=== PATIENT | female | born 1945 | race Caucasian/White ===

== ENCOUNTER 2022-11-29 15:30 | Outpatient (REF) | payer MEDICARE, SELFPAY | END 2022-11-29 15:31 | disposition home or self-care (01) | LOC: LAB 15:30 | PROVIDERS: Visit Provider Orthopaedic Surgery Sports Medicine | DX: Z01.818 Encounter for other preprocedural examination (principal); Z20.822 Contact with and (suspected) exposure to COVID-19 | CPT/HCPCS: 36415; 86850; 86900; 86901 ==

== ENCOUNTER 2022-12-01 10:50 | Day surgery (SDC) | payer MEDICARE, SELFPAY ==
[2022-12-01] VITALS (20 sets, daily range): BP systolic 92–150; BP diastolic 52–97; PULSE 65–93; RESP 13–20; TEMP 35.3–36.8; O2SAT 92–100; BMI 36.8
--- NOTE | 2022-12-01 11:13 | CRLHL7_ITS ---
For Patients: As a result of the Cures Act, medical imaging exams and procedure reports are released immediately into your electronic medical record. You may view this report before your referring provider. If you have questions, please contact your health care provider. Indication: Postop Technique: AP hip centered pelvis and lateral view right hip Findings/Impression: Hardware from a right total hip arthroplasty is in satisfactory position. Bone alignment is normal. No sign of acute fracture. Postop changes are within normal limits. Dictated by Edgar Salinas MD @ 12/01/2022 3:41:59 PM (Electronically Signed)
[2022-12-01] MEDS: LACTATED RINGERS 1000 ML 1,000 ML 100 ML IV ×2 (11:49→13:20)
[2022-12-01] MEDS: OXYCODONE (CR) 10 MG TAB.ER.12H PO (11:50)
[2022-12-01] MEDS: ACETAMINOPHEN 500 MG TABLET 1000 MG PO ×2 (11:50→18:08)
[2022-12-01] MEDS: CELECOXIB 200 MG CAPSULE PO ×2 (11:50→22:20)
[2022-12-01] MEDS: fentaNYL 100 MCG/2 ML inj IVP (12:24)
[2022-12-01] MEDS: MIDAZOLAM HCL 1 MG/ML inj IVP (12:24)
--- NOTE | 2022-12-01 12:29 | SUR.PREOP ---
TIME?OUT:?1220 PT/RN/MDA?VERIFICATION?OF?SURGICAL?SITE,?PROCEDURE,?AND?CONSENT OBTAINED?PRIOR?TO?INVASIVE?PROCEDURE. all in agreement
--- NOTE | 2022-12-01 12:45 | CRLHL7_ITS ---
For Patients: As a result of the Cures Act, medical imaging exams and procedure reports are released immediately into your electronic medical record. You may view this report before your referring provider. If you have questions, please contact your health care provider. Indication: Hip replacement surgery Technique: AP hip fluoroscopic image. Fluoroscopy time 48.1 seconds. Findings/Impression: Hardware from a right total hip arthroplasty is in satisfactory position. Dictated by Edgar Salinas MD @ 12/01/2022 3:35:35 PM (Electronically Signed)
[2022-12-01] MEDS: TRANEXAMIC ACID 100 MG/ML INJ 1000 MG IV (12:50)
[2022-12-01] MEDS: CEFAZOLIN 2 GM in 0.9 % SODIUM CHLORIDE Mini-bag 100 ML IVPB ×2 (12:55→18:09)
--- NOTE | 2022-12-01 13:00 | P.NB_ITS ---
Nerve Block Nerve Block Time Seen by Provider: 12:25 Date Seen: 12/01/22 Type of block requested by surgeon for post-operative analgesia: LOLY/LFCN Side: right Time out performed: Yes Verification of patient name: Yes Verification of date of : Yes Site marking: site marked Name of person performing procedure: Oscar Continuous monitoring Was continuous monitoring of O2 sat, B/P, director of cardiac cath lab, recorded every 15 minutes?: Yes Procedure Checklist: sterile prep, needles and gloves Ultrasound guided. Images saved: Yes Medications given in 5ml increments after negative aspiration: Ropivicaine %: 0.5 mL: 30 Needle gauge: 20 Decadron (mg): 10 Precedex (mcg): 25 Patient tolerated procedure well: Yes Additional comments: Needle noted below psoas tendon needle noted adjacent to LFCN Block Charges Block Charge (with Pro Fee): Other Periph Nerve Block Use of Ultrasound Machine for Block: Yes- US Guidance/pain block
--- NOTE | 2022-12-01 13:32 | W.ANESCHARGE ---
Anesthesia Charges Start Date/Time Anesthesia Start Date: 12/01/22 Anesthesia Start Time: 12:30 Stop Date/Time Anesthesia Stop Date: 12/01/22 Anesthesia Stop Time: 15:10 Summary Emergency: No Extremes of Age: Over 71-CPT 78136
--- NOTE | 2022-12-01 14:11 | W.ANESCHARGE ---
Anesthesia Charges Start Date/Time Anesthesia Start Date: 12/01/22 Anesthesia Start Time: 12:30 Stop Date/Time Anesthesia Stop Date: 12/01/22 Anesthesia Stop Time: 15:10 Summary Emergency: No Extremes of Age: Over 71-CPT 38907
--- NOTE | 2022-12-01 14:23 | P.ORPRC_ITS ---
Procedure Note Date of procedure: 12/01/22 Procedure: PREOPERATIVE DIAGNOSIS: 1. Right hip osteoarthritis, severe, primary POSTOPERATIVE DIAGNOSIS: 1. Right hip osteoarthritis, severe, primary 2. Right acetabular 1.8 cm cyst within the superior acetabulum PROCEDURE: 1. Right total hip arthroplasty-anterior approach 2. Right acetabular this cyst excisional debridement of cystic tissue and bone grafting using autograft from the femoral head 3. [id number] - intraoperative fluoroscopy up to 1 hour. SURGEON: Massimo Tellez MD. CHROME PLATER: Tony Hodge PA-C; RICK Randall - Of note, a skilled office manager executive assistant was critical for this case to aid in patient positioning, tissue retraction, limb manipulation/positioning, and closure. ANESTHESIA: Spinal anesthetic EBL: 300 mL IMPLANTS: DePuy J&J uncemented total hip Hildreth cup size 52, hole eliminator, +0 neutral liner Actis stem, standard offset, size 9 +5 mm ceramic 32mm head COMPLICATIONS: None evident INDICATIONS: The patient is a pleasant 77-year-old female who has experienced severe right hip pain and difficulty bearing weight. Workup included x-rays which revealed severe osteoarthrosis in the hip. Given the deformity, the dysfunction, and the pain, as well as the failure of nonoperative management, recommendation was made for surgery. FINDINGS: Severe full-thickness chondral loss femoral head broadly as well as within the acetabulum. Large osteophytes around the perimeter of the femoral head/neck junction. Large 1.8 cm cystic structure within the superior acetabulum seen following reaming. There was bone in the deep surface making this within the sourcil region. DESCRIPTION OF PROCEDURE: Following a thorough discussion of risks, benefits, and alternatives consent was obtained and the right hip was marked. The patient was brought to the operating room and placed supine on the operating table. Induction of anesthesia was undertaken. 2 g IV Ancef and 1 g tranexamic acid was administered within 1 hr of incision preoperatively. Proper time-out was performed identifying proper patient, site, procedure. The operative extremity was prepped and draped in the appropriate sterile fashion using ChloraPrep after the patient was positioned on the [place] table with head in neutral alignment and all bony prominences well padded. C-arm fluoroscopic imaging was utilized to confirm proper pelvis rotation and position, and to get true AP films of both the contralateral left, and the affected right hip. This is for comparison. A longitudinal incision was made starting approximately 1 cm distal to the ASIS, and 3-4 cm lateral. The incision was extended distally aiming toward the lateral border the patella. Sharp incision through skin and bovie cautery through the subcutaneous tissue allowed identification of the TFL fascia. This was sharply divided, and the fascia bluntly released from the muscle fibers as we dissected medial. Upon coming to the medial border, we were able to retract the TFL laterally, and penetrated the deeper fascia and identify the crossing circumflex vessels. These were ligated/cauterized. The rectus was elevated from the capsule, and retractors placed laterally and medially along the femoral neck to help with visualization of the capsule. We then performed an inverted T capsulotomy. The capsule was tagged for later repair. Retractors were placed inside the capsule. The femoral neck was visualized after releasing medially down to the lesser trochanter, along the saddle laterally, and up onto the acetabulum. The femoral neck cut was made in line with our preoperative templating. The head was removed in a single piece, and sized. We turned our attention to acetabular preparation. Initially, the labrum was resected from around the perimeter, the pulvinar was excised, allowing us to visualize the false wall. We started the reaming with a 43 mm reamer. This was medialized down to the true wall. We then enlarged our reamers sequentially up to one size less than the selected cup size. At this stage, the large cyst was seen within the superior acetabulum. We curetted out this cystic tissue down to bone. We utilized the femoral head after splitting this. The cancellous bone from the head was packed within the cyst and both with digital palpation as well as with a Joy elevator. The Reamer was then placed on reverse with excellent fill of the bone void. Following this, we trialed at the same size and found it to have an excellent fit. The selected cup was then opened, inserted, and impacted in line with the goal of 40? of abduction, and 20-25? of anteversion. This was confirmed on C-arm fluoroscopic imaging to be in the appropriate/goal position. Once the cup was placed we placed a hole eliminator and a liner consistent with preop planning. Attention was turned to the femoral preparation. The limb was extended, externally rotated, and adducted. The posteromedial capsule was released, as retractors were placed allowing excellent access to the proximal femur. Initially a weigh box tender was followed by canal finder followed by various broaches. We broached sequentially up to the size noted above, found it to have excellent rotational control, and trialing various heads and necks, revealed that appropriate neck offset, and the above noted head size provided the greatest stability, and adventist of length, and offset. C-arm fluoroscopic imaging confirmed position of the stem, as well as leg lengths, which were compared with the pre procedure all fluoroscopic images. Trial implants were removed, the real femoral stem inserted, as was the appropriate head. After reducing, the leg was placed through range of motion and stability was confirmed anterior, posterior, and lateral. A 3 min Betadine soak was then performed, and thorough irrigation with normal saline followed. Closure of the capsule was performed with #1 PDS. Bleeding was confirmed to be controlled at this stage, and the TFL fascia was closed with #0 strata fix. Subcutaneous, and subcuticular closure was performed with 2-0 Vicryl and 4-0 Monocryl, respectively. Dressings were applied, and the patient was awoken from anesthesia and transferred the PACU in stable condition. A skilled office manager executive assistant was critical for this case to aid in patient positioning, tissue retraction, acetabular and proximal femoral exposure, limb manipulation/positioning, dislocation/relocation, patient safety, and closure. PLAN: 1. Weight bear as tolerated operative extremity. 2. 23 hr perioperative antibiotics. 3. Ice. 4. PT/OT consults for ambulation assistance/mobility education. 5. Social work consult for discharge planning. 6. DVT prophylaxis with at SCDs, Olivier Escobar, and Xarelto x5 days followed by aspirin for a total of 1 month..
--- NOTE | 2022-12-01 14:59 | PM.IMCN1 ---
Date of Consult Patient: Surekha Patient Consult date: 12/01/22 Requesting Physician: Orthopedics Primary Care Provider: Not a Local Provider Consult Narrative Narrative: HOSPITALIST CONSULT Hospital Day # 1 Post Op Day # 0 PROCEDURE: 1. Right total hip arthroplasty-anterior approach 2. Right acetabular this cyst excisional debridement of cystic tissue and bone grafting using autograft from the femoral head The hospital medicine team was asked by Orthopedic team to manage the patient's hypertension, and morbid obesity There have been no perioperative concerns or questions. I updated the [facility] histories and Medications and Allergies in the Expanse tabs REVIEW OF SYSTEMS: 12-point ROS completed with patient and negative unless otherwise stated in HPI or below. PHYSICAL EXAM: CODE STATUS: FULL CODE CONSTITUTIONAL: Conversive, good historian. A/O. Knows setting and context. VITAL SIGNS: see record. HEENT: Normocephalic, atraumatic. PERRL, EOMI, conjunctivae pink, no scleral icterus. Ears and nose externally normal. Pharynx normal. NECK: No JVD. No carotid bruit, no thyromegaly, no adenopathy. CHEST: Clear to auscultation bilaterally HEART: No harsh murmurs. S1/S2. ABDOMEN: Flat, soft, nontender. Normal bowel sounds. Moderately obese. EXTREMITIES: trace edema MUSCULOSKELETAL: surgical dressing intact and no obvious bleeding / hematoma. NEURO: Cranial nerves intact. Normal affect. No gross deficits. Speech intelligible. dense spinal anesthesia appreciated. SKIN: No rashes, petechiae, concerning changes PSYCHIATRIC: Euthymic. INVESTIGATIONS: EMR Reviewed DISPOSITION: MedSurg Recovery; Discharge tomorrow DVT: Agree with ortho plan for DVT prevention (xarelto x 5D, aspirin bid x 25D) GI: PO intake PFSH PFS Medical History (Updated 12/01/22 @ 16:39 by Janette Iqbal MD) GERD (gastroesophageal reflux disease) Hearing loss Hyperlipemia Hyperlipidemia Hypertension Injury of left shoulder Obesity (BMI 30-39.9) PATIENCE (obstructive sleep apnea) PATIENCE (obstructive sleep apnea) Osteoarthritis of right knee Scoliosis Tremor Surgical History (Updated 12/01/22 @ 16:22 by Janette Iqbal MD) History of total right hip arthroplasty Hx of appendectomy Social History Smoking Status: Never smoker Do you use any of these nicotine containing products: None How often do you have a drink containing alcohol: 2-3 times a week Alcohol type: wine How many standard drinks containing alcohol do you have on a typical day: 1 or 2 How often do you have six or more drinks on one occasion: Never AUDIT-C Alcohol total score: 3 Non-prescribed substance use: denies use Caffeine: Yes (coffee 2 cups/day) Are you using contraception or practicing any form of control: No Meds Home Medications and Allergies Home Medications Medication Instructions Recorded Confirmed Type lisinopril 10 mg tablet 10 mg PO DAILY 08/24/22 12/01/22 History hydrochlorothiazide 25 mg tablet 25 mg PO DAILY 11/29/22 12/01/22 History lovastatin 40 mg tablet 40 mg PO HS 11/29/22 12/01/22 History multivitamin 1 tab PO DAILY 11/29/22 12/01/22 History potassium chloride 20 mEq 20 meq PO DAILY 11/29/22 12/01/22 History tablet,extended release(part/cryst) Allergies Allergy/AdvReac Type Severity Reaction Status Date / Time No Known Drug Allergies Allergy Verified 10/05/22 13:44 Exam Const: Vital Signs, click to edit/add: Vital Signs - 24 hr 12/01/22 11:39 12/01/22 12:24 Temperature 98.2 F Pulse Rate 69 84 Respiratory Rate 16 16 Blood Pressure 124/52 L 150/77 H Pulse Oximetry 96 99 Oxygen Delivery Me thod Room Air Nasal Cannula Oxygen Flow Rate 2 Assessment and Plan Assessment and plan (1) Osteoarthritis of right hip: Problem comment: Severe, anterior approach total hip arthroplasty 12/01/2022 Dr. Fernandes Status: Acute (2) History of total right hip arthroplasty: Problem comment: Dr. Tellez; 12/01/22. anterior approach. Status: Acute (3) Obesity (BMI 30-39.9): Problem comment: BMI 35.8 Status: Acute (4) Hypertension: Problem comment: Hydrochlorothiazide, lisinopril, potassiu -these will be on hold p.r.n. Status: Acute
--- NOTE | 2022-12-01 15:48 | SUR.PHASEI ---
patient met discharge criteria per anesthesia
[2022-12-01] MEDS: OXYCODONE 5 MG TABLET PO (19:24)
--- NOTE | 2022-12-01 20:19 | PC.NURSE ---
Pt arrived in hospital bed to room 282 @ 1548 pm s/p RTHAA with Dr. Tellez, settled per Daly Medina RN. Please see initial assessment from PACU and frequent post op VS. Pt's pain 0 out of 10 d/to surgical block. Spouse Mariel supportive at bedside. Maintenance IVF @ 100 cc/hr. Pt received IV ATB and scheduled tylenol 1000 mg. Beverley calm and cooperative with nsg interventions and post op teaching. Tolerating CL diet. Pt has not yet voided since arrival to floor. Report to Bubba Orta RN for night warehouse selector.
[2022-12-01] MEDS: SENNOSIDES 1 TAB TABLET 2 TAB PO (22:21)
[2022-12-02] MEDS: ACETAMINOPHEN 500 MG TABLET 1000 MG PO ×2 (00:31→07:03)
[2022-12-02 03:52] VITALS: BP 136/67; PULSE 80; RESP 18; TEMP 36.6; O2SAT 93
[2022-12-02] MEDS: CEFAZOLIN 2 GM in 0.9 % SODIUM CHLORIDE Mini-bag 100 ML IVPB (03:57)
--- NOTE | 2022-12-02 06:33 | PC.NURSE ---
pt alert and oriented. IV Abx. No nausea with clear liquids. Up to the bathroom with walker and SBA. Pain with activity. Scheduled pain med given.
[2022-12-02 07:00] VITALS: BP 136/63; PULSE 75; RESP 16; TEMP 36; O2SAT 95
[2022-12-02 07:43] LABS: Hemoglobin* 11.2 gm/dL (12.0-16.0); Immature Granulocytes Pct Auto 0.2 %; Lymphocytes Percent Auto 7.4 % (20-44); Mean Corpuscular HGB Conc 35 gm/dL (32-36); Mean Corpuscular Hemoglobin 31 pg (26-34); Mean Corpuscular Volume 89 fL (80-100); Monocytes Percent Auto 6.3 % (0.0-11.0); Neutrophils Percent Auto 86.1 % (42.0-72.0); Platelet Count* 260 K/uL (140-440); RDW Coefficient of Variation % 11.4 % (11.5-15.5); Red Blood Count 3.59 m/uL (4.00-5.20); White Blood Count* 12.09 K/uL (4.50-11.00)
[2022-12-02 07:48] LABS: Slide Review Reflex No
[2022-12-02 08:05] LABS: Potassium* 3.4 mmol/L (3.6-5.1); Sodium* 132 mmol/L (135-149)
[2022-12-02 08:08] LABS: Creatinine* 0.7 mg/dL (0.5-1.5); Est. Creatinine Clearance* 39.59; Estimated Glomerular Filt Rate 90 ml/min
[2022-12-02 08:09] LABS: Blood Urea Nitrogen* 15 mg/dL (7-30)
[2022-12-02] MEDS: CELECOXIB 200 MG CAPSULE PO (08:20)
[2022-12-02] MEDS: OXYCODONE 5 MG TABLET PO (08:20)
[2022-12-02] MEDS: SENNOSIDES 1 TAB TABLET 2 TAB PO (08:20)
[2022-12-02] MEDS: RIVAROXABAN 10 MG TABLET PO (08:21)
--- NOTE | 2022-12-02 09:05 | PM.ORPN ---
Subjective Subjective Time Seen by Provider: 08:15 Date Seen: 12/02/22 Principal diagnosis: Status post right total hip arthroplasty Interval history: Beverley is comfortable this morning. She is having breakfast. She is discharging to home today. Ortho Exam Narrative Exam Narrative: Alert and oriented x3. Patient is in no acute distress. Converses without labored breathing. Hearing is grossly intact. Ambulates with a walker. Examination of the right hip shows the dressing is in place. It is intact. Soft tissue edema is present and mild. Mild bruising. CMS intact right lower extremity. Stockings are in place. Bilateral calves are soft and nontender. Const Vital Signs, click to edit/add: Vital Signs - 24 hr 12/01/22 11:39 12/01/22 12:24 12/01/22 15:06 Temperature 98.2 F 97 F L Pulse Rate 69 84 77 Pulse Rate [Left Apical] Respiratory Rate 16 16 13 Blood Pressure 124/52 L 150/77 H 92/60 Blood Pressure [Left Arm] Pulse Oximetry 96 99 96 Oxygen Delivery Method Room Air Nasal Cannula Room Air Oxygen Flow Rate 2 12/01/22 15:10 12/01/22 15:15 12/01/22 15:20 Temperature 97 F L 97 F L 97 F L Pulse Rate 73 74 75 Pulse Rate [Left Apical] Respiratory Rate 15 14 15 Blood Pressure 99/56 L 103/54 L 96/58 L Blood Pressure [Left Arm] Pulse Oximetry 96 96 96 Oxygen Delivery Method Room Air Room Air Room Air Oxygen Flow Rate 12/01/22 15:25 12/01/22 15:30 12/01/22 15:35 Temperature 97 F L 97 F L 97 F L Pulse Rate 74 75 75 Pulse Rate [Left Apical] Respiratory Rate 16 13 15 Blood Pressure 106/55 L 105/57 L 100/56 L Blood Pressure [Left Arm] Pulse Oximetry 98 99 99 Oxygen Delivery Method Room Air Room Air Room Air Oxygen Flow Rate 12/01/22 15:48 12/01/22 20:00 12/01/22 16:00 Temperature 95.6 F L 97.5 F L 95.8 F L Pulse Rate 74 Pulse Rate [Left Apical] 72 Respiratory Rate 18 18 18 Blood Pressure Blood Pressure [Left Arm] 138/78 140/73 H 120/58 L Pulse Oximetry 97 100 Oxygen Delivery Method Room Air Room Air Room Air Oxygen Flow Rate 12/01/22 16:15 12/01/22 16:30 12/01/22 16:45 Temperature 96.2 F L 96.5 F L Pulse Rate Pulse Rate [Left Apical] 72 73 79 Respiratory Rate 18 18 18 Blood Pressure Blood Pressure [Left Arm] 119/58 L 117/88 130/70 Pulse Oximetry 100 100 Oxygen Delivery Method Room Air Room Air Room Air Oxygen Flow Rate 12/01/22 17:00 12/01/22 17:30 12/01/22 18:00 Temperature 97.1 F L Pulse Rate Pulse Rate [Left Apical] 65 76 81 Respiratory Rate 18 18 18 Blood Pressure Blood Pressure [Left Arm] 132/59 L 127/97 H 135/67 Pulse Oximetry 100 100 97 Oxygen Delivery Method Room Air Room Air Room Air Oxygen Flow Rate 12/01/22 20:00 12/01/22 21:00 12/01/22 22:00 Temperature 97.9 F 97.9 F 98.0 F Pulse Rate Pulse Rate [Left Apical] 93 90 81 Respiratory Rate 20 18 18 Blood Pressure Blood Pressure [Left Arm] 127/95 H 147/83 H 138/83 Pulse Oximetry 93 94 92 Oxygen Delivery Method Room Air Room Air Room Air Oxygen Flow Rate 12/02/22 03:52 Temperature 97.8 F Pulse Rate Pulse Rate [Left Apical] 80 Respiratory Rate 18 Blood Pressure Blood Pressure [Left Arm] 136/67 Pulse Oximetry 93 Oxygen Delivery Method Room Air Oxygen Flow Rate Assessment and Plan Assessment and plan (1) Osteoarthritis of right hip: Problem details: Severe, anterior approach total hip arthroplasty 12/01/2022 Dr. Fernandes Status: Resolved (2) History of total right hip arthroplasty: Problem details: FELICE-AA, and acetabular this cyst excisional debridement of cystic tissue and bone grafting using autograft from the femoral head (12/01/2022, Dr. Tellez) Status: Acute Assessment and Plan: Plan for discharge is today to home if they meet discharge criteria. DVT prophylaxis includes Xarelto 10 mg daily for total of 5 days, then aspirin 81 mg twice daily for 25 days, Olivier stockings x1 month , frequent ambulation Remove dressing 1 week. Observe wound and phone Orthopedics with any questions or concerns Use Ice on operative hip unrestricted. Return to clinic in 1 week with PA for a wound check Return to clinic in [address] Hansen Minimize narcotic use. Wean off and discontinue soon as possible. Activities as tolerated. No strenuous activity. Attend outpt PT (3) Obesity (BMI 30-39.9): Problem details: BMI 35.8 Status: Acute (4) Hypertension: Problem details: Hydrochlorothiazide, lisinopril, potassiu -these will be on hold p.r.n. Status: Acute
--- NOTE | 2022-12-02 11:22 | PC.NURSE ---
PATIENT DISCHARGED TO HOME, PLEASANT AND COOPERATIVE, UP SBA WITH WALKER AND BELT TOLERATING WELL, RATING PAIN IN RIGHT HIP 2-3/10 BEING MANAGED WITH SCHEDULED TYLENOL AND PRN OXYCODONE, DRESSING TO RIGHT HIP CDI, SMALL BRUISES NOTED AT SURGICAL SITE, TOLERATING REGULAR DIET NO NAUSEA OR VOMITING, PATIENT DISCHARGED TO HOME WITH , PATIENT AND VERBALIZED UNDERSTANDING OF DISCHARGE INFOMRATION AND HAD NO FURTHER QUESTIONS AT THIS TIME, IV REMOVED, ALL BELONGINGS SENT WITH PATIENT, LEFT VIA WHEELCHAIR WITH AROUND 1115.
--- NOTE | 2022-12-02 15:31 | PM.IMPN1 ---
Progress Note: A&P Assessment and plan (1) Osteoarthritis of right hip: Problem details: Severe, anterior approach total hip arthroplasty 12/01/2022 Dr. Fernandes Status: Resolved (2) History of total right hip arthroplasty: Problem details: FELICE-AA, and acetabular this cyst excisional debridement of cystic tissue and bone grafting using autograft from the femoral head (12/01/2022, Dr. Tellez) Status: Acute (3) Obesity (BMI 30-39.9): Problem details: BMI 35.8 Status: Acute (4) Hypertension: Problem details: Hydrochlorothiazide, lisinopril, potassiu -these will be on hold p.r.n. Status: Acute Plan 1. Patient ready for discharge from medical perspective. 2. Follow up with Orthopedic surgery is indicated. Time Spent With Patient Total time spent: 20 minutes Subjective Time Seen by Provider: 09:00 Date Seen: 12/02/22 Interval history: Hospital day 2. Postoperative day 1. Doing well. Tolerating increased activities. No concerns or complaints. Ready for discharge. Exam Narrative: Exam Narrative: Appears comfortable and in no acute distress. Alert, oriented to self, place, time come situation. Pleasant disposition. Friendly, cooperative, talkative. Mood and affect are congruent. Lungs are clear to auscultation. Heart tones with regular rhythm. Abdomen with active bowel sounds, soft, nontender. No focal motor neurologic deficits. Const: Vital Signs, click to edit/add: Vital Signs - 24 hr 12/01/22 15:35 12/01/22 15:48 12/01/22 20:00 Temperature 97 F L 95.6 F L 97.5 F L Pulse Rate 75 74 Pulse Rate [Left A pical] Respiratory Rate 15 18 18 Blood Pressure 100/56 L Blood Pressure [Le ft Arm] 138/78 140/73 H Pulse Oximetry 99 97 Oxygen Delivery Me thod Room Air Room Air Room Air 12/01/22 16:00 12/01/22 16:15 12/01/22 16:30 Temperature 95.8 F L 96.2 F L Pulse Rate Pulse Rate [Left A pical] 72 72 73 Respiratory Rate 18 18 18 Blood Pressure Blood Pressure [Le ft Arm] 120/58 L 119/58 L 117/88 Pulse Oximetry 100 100 Oxygen Delivery Me thod Room Air Room Air Room Air 12/01/22 16:45 12/01/22 17:00 12/01/22 17:30 Temperature 96.5 F L 97.1 F L Pulse Rate Pulse Rate [Left A pical] 79 65 76 Respiratory Rate 18 18 18 Blood Pressure Blood Pressure [Le ft Arm] 130/70 132/59 L 127/97 H Pulse Oximetry 100 100 100 Oxygen Delivery Me thod Room Air Room Air Room Air 12/01/22 18:00 12/01/22 20:00 12/01/22 21:00 Temperature 97.9 F 97.9 F Pulse Rate Pulse Rate [Left A pical] 81 93 90 Respiratory Rate 18 20 18 Blood Pressure Blood Pressure [Le ft Arm] 135/67 127/95 H 147/83 H Pulse Oximetry 97 93 94 Oxygen Delivery Me thod Room Air Room Air Room Air 12/01/22 22:00 12/02/22 03:52 12/02/22 07:00 Temperature 98.0 F 97.8 F 96.8 F L Pulse Rate Pulse Rate [Left A pical] 81 80 75 Respiratory Rate 18 18 16 Blood Pressure Blood Pressure [Le ft Arm] 138/83 136/67 136/63 Pulse Oximetry 92 93 95 Oxygen Delivery Me thod Room Air Room Air Room Air Documenting provider has reviewed patient's vital signs: yes Labs Labs: Laboratory Results - last 24 hr 12/02/22 12/02/22 07:25 07:25 WBC 12.09 H RBC 3.59 L Hgb 11.2 L Hct 32.0 L MCV 89 MCH 31 MCHC 35 RDW Coeff of Yvette 11.4 L Plt Count 260 Neut % (Auto) 86.1 H Lymph % (Auto) 7.4 L [place] % (Auto) 6.3 Eos % (Auto) 0.0 Baso % (Auto) 0.0 Neut # (Auto) 10.40 H Lymph # (Auto) 0.90 [place] # (Auto) 0.80 Eos # (Auto) 0.00 Baso # (Auto) 0.00 Sodium 132 L Potassium 3.4 L BUN 15 Creatinine 0.7 Estimated Creat Clear 39.59 Estimated GFR 90
== END 2022-12-02 11:15 | disposition home or self-care (01) ==
LOC: OR 10:52 → MEDSURG 10:57
PROVIDERS: Visit Provider Orthopaedic Surgery Sports Medicine
PROC: (CPT 27130; principal; 2022-12-01 12:45)
DX: M16.11 Unilateral primary osteoarthritis, right hip (principal); M25.851 Other specified joint disorders, right hip; M85.651 Other cyst of bone, right thigh; M25.551 Pain in right hip; I10 Essential (primary) hypertension; E66.01 Morbid (severe) obesity due to excess calories; K21.9 Gastro-esophageal reflux disease without esophagitis; G47.33 Obstructive sleep apnea (adult) (pediatric); Z68.35 Body mass index [BMI] 35.0-35.9, adult
CPT/HCPCS: 27130; 27357; 01214; 36415; 64450; 73501; 76000; 76942; 82565; 84132; 84295; 84520; 85025; 97116; 97161; 97165; 97535; 99100; A9270; C1776; J0690; J1100; J2250; J2370; J2704; J2795; J3010; J7120